=== PATIENT | male | born 1945 | race African-American/Black ===

== ENCOUNTER 2017-02-03 05:19 | Day surgery (SDC) | payer OTHER ==
[~2017-02-03] VITALS: Ht 170.2 cm; Wt 95.7 kg
--- NOTE | ~2017-02-03 | EKG ---
[address] [address] ELECTROCARDIOGRAM REPORT Name: QIANA SANTIAGO Room #: 150-2 [facility]..#: [id number] Admission: 02/03/17 Attend Phys: Dhruv Frost MD, F Discharge: Date of : 41 Report #: [id number] THIS REPORT FOR: //name// [facility] Test Date: 2017-02-03 Test Time: 06:49:47 Pat Name: QIANA SANTIAGO Department: Room: 150 2 Gender: M [employer] Supervisor: ROYCE : 1945 Requested By: Dhruv Frost Order Number: [id number] MD: Measurements Intervals [place] Rate: 83 P: 47 IN: 196 QRS: -56 QRSD: 109 T: 41 QT: 386 QTc: 454 Interpretive Statements Sinus rhythm Ventricular trigeminy Inferior infarct, old Compared to ECG 01/31/2016 09:03:34 No significant changes [email or web address] By: [id number] Epiphany Epiphany, /EPI
--- NOTE | ~2017-02-03 | O ---
[address] [address] OPERATIVE REPORT Name: JACKQIANA RAY Room #: [facility]..#: [id number] Admission: 02/03/17 Attend Phys: Dhruv Frost MD, F Discharge: 02/03/17 Date of : 41 Report #: [id number] THIS REPORT FOR: //name// CC: Roxana Frost MD DATE OF SERVICE: 02/03/2017 SURGEON: Dhruv Frost MD. ELECTRICAL LOGGING OPERATOR: Rudy Tubbs MD and DOUG Hill. PREOPERATIVE DIAGNOSES: 1. Bilateral inguinal hernias. 2. Umbilical hernia. 3. Chronic obstructive pulmonary disease. 4. Cardiomyopathy. 5. Systolic heart failure. 6. Hypertension. 7. Benign prostatic hypertrophy. 8. Hypercholesterolemia. POSTOPERATIVE DIAGNOSES: 1. Bilateral inguinal hernias. 2. Incarcerated umbilical hernia 3. Chronic obstructive pulmonary disease. 4. Cardiomyopathy. 5. Systolic heart failure. 6. Hypertension. 7. Benign prostatic hypertrophy. 8. Hypercholesterolemia. PROCEDURES: 1. Laparoscopic totally extraperitoneal repair of bilateral inguinal hernias with ProGrip mesh. 2. Primary suture repair of incarcerated umbilical hernia. ANESTHESIA: General endotracheal anesthesia and local anesthetic. ESTIMATED BLOOD LOSS: 5 mL. SPECIMEN: None. COMPLICATIONS: None appreciated. [address] [address] OPERATIVE REPORT Name: QIANA SANTIAGO Room #: DEP [facility]#: [id number] Admission: 02/03/17 Attend Phys: Dhruv Frost MD, F Discharge: 02/03/17 Date of : 41 Report #: [id number] INDICATIONS FOR PROCEDURE: This is a 71-year-old male patient who was referred by Dr. Juno Morgan with Urology service and his primary care provider is Dr. Roxana Crespo. The patient had been seen by Urology for hematuria. He complains of left groin pain and pressure, worse with abdominal straining. He denies a change in his bowel habits. CT of abdomen and pelvis showed herniation of the urinary bladder into a left inguinal hernia. The wall of urinary bladder was thickened in this area. In addition to this, a small fat-containing right inguinal hernia was present, as was a small fat containing umbilical hernia. On exam, the patient had a palpable left inguinal bulge with mild tenderness to palpation and a small bulge in the right groin that was minimally tender to palpation. An umbilical bulge was also present. No overlying erythema or edema was present in any of the areas of herniation. The patient presents now for laparoscopic repair of his inguinal hernias and repair of his umbilical hernia. OPERATIVE FINDINGS: Upon exploration of the left preperitoneal space, the patient had a moderate-sized indirect left inguinal hernia with no significant direct hernia. The urinary bladder presumably was involved with the indirect inguinal hernia. There was no evidence for a femoral hernia. In the right preperitoneal space, an indirect inguinal hernia was also identified with no evidence for a direct or femoral hernia. The landmarks of spermatic cord were clearly identified on each side. The umbilical hernia was incarcerated with omentum and preperitoneal fat. DESCRIPTION OF PROCEDURE IN DETAIL: After the benefits and risks of the procedure were explained to the patient, which include but not limited to risks of bleeding, infection, postoperative pain, postoperative expectations, informed consent was obtained. The patient was identified in the preoperative holding area. He was given IV antibiotics as documented in the chart in line with the SCIP protocol. The patient was then taken to the operating room and he was placed in the supine position. SCDs were placed on the patient's bilateral lower extremities and pneumatic compression was initiated. The patient was then given IV sedation and he was intubated without incident. A time-out was performed to identify the correct patient and procedure. Local anesthetic was infiltrated into the skin and subcutaneous tissue infraumbilically where a curvilinear incision was made with #15 blade scalpel. Dissection was carried down to the left anterior rectus sheath fascia. The fascia was opened transversely. The underlying left rectus abdominis muscle was identified. The muscle was swept laterally and the Spacemaker port was advanced into the preperitoneal space with gentle sweeping motions favoring the right side as bladder was felt to be involved with a left inguinal hernia. The outrigger was then removed and the Spacemaker balloon was gently inflated under direct visualization with a 0-degree angled laparoscope. The Spacemaker balloon was then removed and the cuff was inflated. A 10 mm 30-degree angled laparoscope was inserted after insufflating the preperitoneal space with carbon dioxide to 15 mmHg. The bladder appeared normal without evidence for laceration [address] [address] OPERATIVE REPORT Name: QIANA SANTIAGO Room #: DEP [facility] M.R.#: [id number] Admission: 02/03/17 Attend Phys: Dhruv Frost MD, F Discharge: 02/03/17 Date of : 41 Report #: [id number] or iatrogenic injury. The 5 mm ports were placed in the lower midline through transverse incisions under direct visualization after local anesthetic was infiltrated into the skin and subcutaneous tissue and appropriately sized incisions were made. Operative findings are as noted above. The patient was placed in the Trendelenburg position, rotated to his right. The left preperitoneal space was explored first as this was more problematic area. The peritoneum was dissected off of the anterior abdominal wall with appropriate traction and electrocautery. I then identified the pubic tubercle and spermatic cord with adjacent hernia sac. The spermatic cord and hernia sac were isolated and the hernia sac was then dissected off of the spermatic cord gently. The spermatic cord contents were clearly identified. The hernia sac (peritoneal lining) was then further dissected off of the spermatic cord with blunt dissection and judicious use of electrocautery with care taken to protect the spermatic cord at all times. After fully reducing the hernia sac, the ProGrip mesh was chosen for the repair. The bladder was carefully inspected and again, there was no evidence for either iatrogenic injury or laceration. The ProGrip mesh was tailored on the backtable, then rolled and placed within the preperitoneal space through the Spacemaker ports. The mesh was then unrolled in a scroll down fashion with the adherent side against the anterior abdominal wall to cover the hernia defect with good overlap and good medialization of the mesh near the midline. The mesh was rolled down with minimal gripping of the edges and complete coverage of the hernia defect with the hernia sac being completely dissected free and deep to the mesh such that the mesh directly covered the defect. The right preperitoneal space was then explored. The patient was rotated to his left with the right side up. Dissection was carried out in similar fashion. The landmarks were identified. The peritoneum was dissected off of the anterior abdominal wall. The spermatic cord and hernia sac were then isolated. This hernia sac was then further isolated off of the spermatic cord with blunt dissection and judicious use of electrocautery. After fully dissecting the sac free, the indirect inguinal hernia was identified. The ProGrip mesh was tailored on the backtable, then rolled and placed within the preperitoneal space. The mesh was unrolled with the adherent side against the anterior abdominal wall with good medialization of the mesh near the midline and good overlap of the defect. Similarly, the hernia sac was well outside of the hernia defect, deep to the mesh whereby the mesh contacted the hernia defect. Air had escaped into the peritoneal cavity. The preperitoneal space was desufflated and the ports were removed. A 5 mm 0-degree angled laparoscope was then used to enter the abdominal cavity through the infraumbilical incision. This was done in order to desufflate the abdominal cavity. The port was then removed. Dissection was carried out to identify the umbilical hernia. Blunt dissection [address] [address] OPERATIVE REPORT Name: QIANA SANTIAGO KIMBER Room #: DEP [facility]#: [id number] Admission: 02/03/17 Attend Phys: Dhruv Frost MD, F Discharge: 02/03/17 Date of : 41 Report #: [id number] and electrocautery were used to define the hernia defect. The umbilical stalk was dissected off of the area. Incarcerated omentum and preperitoneal fat were identified in the defect. The contents were reduced. There was good hemostasis. The umbilical hernia defect was then closed with a fmqtfy-wl-ejgpy 0 PDS suture with good closure of the defect. The umbilical stalk was pexy'd to the fascia with nrmziw-jf-rtymd 3-0 Vicryl suture. Attention was then turned to closure of the left anterior rectus sheath fascia. Cqokhk-yu-xgewt 0 PDS sutures times 2 were used to close the defect. The incisions were then closed with interrupted subcuticular 4-0 Monocryl sutures and Dermabond. The patient tolerated procedure well. He was awakened, extubated, and taken to recovery room in stable condition with no apparent intraoperative complications. <ELECTRONICALLY SIGNED> By: hDruv Frost MD, FACS 02/04/17 0805 [id number] Dhruv Frost MD, FACS /nt
[~2017-02-03 05:19] MED LIST: ALDACTONE25 MG PO; CARVEDILOL12.5 MG PO; FLEXERIL PO; KLOR-CON 1010 MEQ PO; LASIX 40 MG TAB40 M2 PO; LISINOPRIL20 MG PO; NORVASC5 MG PO; PLAVIX 75 MG TA75 M1 PO
[2017-02-03 07:00] VITALS: BP 144/70
[2017-02-03 07:05] LABS: CALCIUM 8.2 mg/dL (8.5-10.1); CREATININE 1.1 mg/dL (0.7-1.3); POTASSIUM 4.4 mmol/L (3.5-5.1)
[2017-02-03] MEDS ORDERED: HYDROCODONE-AP1 EAC6 PO (09:55)
[2017-02-03] MEDS ORDERED: SENNA-S TABLET1 EACH PO (09:55)
[2017-02-03 10:58] VITALS: BP 144/70
== END 2017-02-03 13:25 | disposition home or self-care (01) ==
LOC: TBA 05:19 → OR 05:19 → TBA 05:20 → OR 09:00
PROVIDERS: Surgery
DX: K40.20 Bilateral inguinal hernia, without obstruction or gangrene, not specified as recurrent (principal); K42.0 Umbilical hernia with obstruction, without gangrene; J44.9 Chronic obstructive pulmonary disease, unspecified; I42.9 Cardiomyopathy, unspecified; I50.20 Unspecified systolic (congestive) heart failure; I10 Essential (primary) hypertension; N40.0 Benign prostatic hyperplasia without lower urinary tract symptoms; E78.00 Pure hypercholesterolemia, unspecified; R06.02 Shortness of breath; J43.9 Emphysema, unspecified; F17.210 Nicotine dependence, cigarettes, uncomplicated; I73.9 Peripheral vascular disease, unspecified; Z98.890 Other specified postprocedural states
CPT/HCPCS: 50010; 50101; 50249; 50411; 50555; 50558; 50944; 51824; 52265; 52266; 54118; 54169; 56525; 56526; 62110; 62900; 70005

== ENCOUNTER 2018-11-29 09:55 | Inpatient (IN) | payer OTHER ==
[~2018-11-29] VITALS: Ht 170.2 cm; Wt 98.0 kg
[2018-11-29 09:55] VITALS: BP 117/51
[~2018-11-29 09:55] MED LIST changes: -ALDACTONE25 MG PO; +HYDROCODONE-AP1 EAC6 PO; +SENNA-S TABLET1 EACH PO; +SPIRONOLACTONE25 M1 PO
[2018-11-29 10:40] LABS: ABSOLUTE NEUTROPHILS 4.5 thou/uL (1.4-8.2); BASOPHILS 1.8 % (0.0-2.0); EOSINOPHILS 0.4 % (0.0-3.0); HEMATOCRIT 33.9 % (42.0-52.0); HEMOGLOBIN 11.5 gm/dL (14.0-18.0); LYMPHOCYTES 21.3 % (24.0-44.0); MCH 31.2 pg (26.0-34.0); MCHC 33.9 g/dL (28.0-37.0); MCV 92.1 fL (80.0-100.0); MONOCYTES 11.7 % (1.0-8.0); PLATELET COUNT 154 thou/uL (150-400); POLYS 64.8 % (36.0-66.0); RBC 3.68 mil/uL (4.50-6.00); RDW 15.2 % (10.5-14.5); WBC 6.9 thou/uL (4.0-11.0)
[2018-11-29 10:47] LABS: ANION GAP 8 mmol/L (7-16); BUN 16 mg/dL (7-18); CALCIUM 8.5 mg/dL (8.5-10.1); CHLORIDE 98 mmol/L (98-107); CO2 28 mmol/L (21-32); CREATININE 1.4 mg/dL (0.7-1.3); GLUCOSE 126 mg/dL (74-106); POTASSIUM 4.4 mmol/L (3.5-5.1); SODIUM 134 mmol/L (136-145)
[2018-11-29 10:56] LABS: ALBUMIN 3.3 g/dL (3.4-5.0); SGOT 14 U/L (15-37); SGPT 18 U/L (30-65); TOTAL BILIRUBIN 0.4 mg/dL (<0.1-1.0); TOTAL PROTEIN 6.9 g/dL (6.4-8.2); TROPONIN-I <0.06 ng/mL (<0.06)
[2018-11-29 11:51] LABS: URINE BLOOD NEGATIVE (Negative); URINE CLARITY CLEAR; URINE COLOR YELLOW; URINE GLUCOSE-RANDOM* TRACE (Negative); URINE KETONES TRACE (Negative); URINE LEUKOCYTES-REFLEX NEGATIVE (Negative); URINE NITRITE-REFLEX NEGATIVE (Negative); URINE PROTEIN (DIPSTICK) 1+ (Negative); URINE SPECIFIC GRAVITY >= 1.030 (1.005-1.035)
[2018-11-29 11:53] LABS: ICTOTEST (BILI CONFIRMATORY) Negative (Negative); URINE BILIRUBIN NEGATIVE (Negative)
[2018-11-29 12:02] LABS: HYALINE CASTS 4-10 Moderate /LPF (None Seen)
[2018-11-29 12:03] LABS: AMORPHOUS URATES Few /LPF (None Seen); BACTERIA-REFLEX 1-9 Few /HPF (None Seen); CASTS None Seen /LPF (None Seen); SQUAMOUS None Seen /LPF (0-3); URINE RBC None Seen /HPF (0-2); URINE WBC-REFLEX None Seen /HPF (0-5)
[2018-11-29] MEDS ORDERED: FLOMAX0.4 MG PO (13:47)
--- NOTE | 2018-11-29 15:01 | EKG ---
[address] [address] ELECTROCARDIOGRAM REPORT Name: QIANA SANTIAGO Room #: 355-P ADM IN M.R.#: [id number] ������������������ Admission: 11/29/18 ������������������ Attend Phys: Vicente Watkins MD Discharge: ������������������ Date of : 41 Report #: [id number] ����������������������������������������������������������������� [id number] THIS REPORT FOR: //name// [facility] ED Test Date: 2018-11-29 Test Time: 10:00:23 Pat Name: QIANA SANTIAGO Department: Room: [facility] Gender: M Major General: NEVA : 1945 Requested By: Javon Coleman Order Number: [id number] MD: Montana Burkett Measurements Intervals [place] Rate: 74 P: 18 DC: 203 QRS: -64 QRSD: 109 T: 7 QT: 392 QTc: 435 Interpretive Statements Sinus rhythm Left anterior fascicular block Compared to ECG 02/03/2017 06:49:47 Left anterior fascicular block now present Ventricular premature complex(es) no longer present Myocardial infarct finding no longer present Electronically Signed On 11-29-2018 15:01:38 [employer] by Montana Burkett [email or web address] ��������������������������������������������� <ELECTRONICALLY SIGNED> ���������������������������������������� By: Montana Burkett MD ��������������������������������������������� 11/29/18 1501 1000 1000 Montana Burkett MD /EPI
[2018-11-29 15:18] VITALS: BP 123/54
[2018-11-29 15:19] VITALS: BP 124/52
--- NOTE | 2018-11-29 18:31 | NUR ---
VSS-AFEBRILE. LUMGS CLEAR-ROOM AIR. NO REPORTED DIZZINESS OR SHORTNESS OF AIR. PAST DIAGNOSIS OF MAIA-NO REPORTED USE OF CPAP AT HOME. ICD INTERROGATED AT BEDSIDE, NO PROBLEMS FOUND WITH DEVICE. TOLERATING MEALS WITH NO REPORTED N/V. NO DIFFICULTY VOIDING. BLOOD PRESURES WITHIN NORMAL LIMITS. NO REPORTED PAIN. DISCUSSED CALLING FOR ASSISTANCE WHEN GETTING OUT OF BED, VERBALIZED UNDERSTANDING, AND SIGNED FALL AGREEMENT.
[2018-11-29 19:35] VITALS: BP 126/62
[2018-11-29] MEDS ORDERED: NEURONTIN 300300 M1 PO (19:43)
[2018-11-29 23:50] VITALS: BP 113/60
[2018-11-30 04:20] VITALS: BP 130/65
[2018-11-30 06:07] LABS: HEMATOCRIT 29.2 % (42.0-52.0); HEMOGLOBIN 9.6 gm/dL (14.0-18.0); MCH 30.2 pg (26.0-34.0); MCV 91.4 fL (80.0-100.0); PLATELET COUNT 132 thou/uL (150-400); RDW 15.1 % (10.5-14.5); WBC 3.6 thou/uL (4.0-11.0)
[2018-11-30 06:36] LABS: ANION GAP 9 mmol/L (7-16); BUN 17 mg/dL (7-18); CALCIUM 7.9 mg/dL (8.5-10.1); CHLORIDE 106 mmol/L (98-107); CO2 24 mmol/L (21-32); CREATININE 0.9 mg/dL (0.7-1.3); GLUCOSE 100 mg/dL (74-106); MAGNESIUM 1.9 mg/dL (1.8-2.4); POTASSIUM 4.3 mmol/L (3.5-5.1); SODIUM 139 mmol/L (136-145); TROPONIN-I <0.06 ng/mL (<0.06)
[2018-11-30 06:39] LABS: CHOLESTEROL 103 mg/dL (<200); HDL CHOLESTEROL 32 mg/dL (>40); LDL CHOLESTEROL 65 mg/dL (<100); TC:HDL 3.2 Ratio (Not establshd); TRIGLYCERIDE 34 mg/dL (<150); VLDL 7 mg/dL (<40)
[2018-11-30 06:40] LABS: SERUM ASSESSMENT Clear
--- NOTE | 2018-11-30 07:42 | NUR ---
PATIENT IS PROGRESSING IN HIS CARE PLAN. VITAL SIGNS STABLE WITH PATIENT HAVING NO COMPLAINTS OF PAIN OR NAUSEA. FULLY ORIENTED, PATIENT IS ABLE TO CALL APPROPRIATELY FOR REQUESTS. PATIENT ASSESSED FREQUENTLY FOR CHEST PAIN WITH NONE REPORTED. UP WITH ASSISTANCE MULTIPLE TIMES WITHOUT INCIDENT. PATIENT IS A HIGH FALL RISK DUE TO EPISODES OF SYNCOPE REPORTED. NPO FROM MIDNIGHT ON IN ANTICIPATION OF STRESS TEST TODAY. AT SHIFT CHANGE PATIENT STATES THAT HE DOES NOT WANT TEST DUE TO TAKING ONE AT [facility] IN [place]. CONTINUE PLAN OF CARE.
[2018-11-30 07:44] VITALS: BP 143/70
[2018-11-30 08:34] LABS: ABSOLUTE NEUTROPHILS 1.3 thou/uL (1.4-8.2); PLATELET ESTIMATE NORMAL
[2018-11-30 15:09] VITALS: BP 143/70
--- NOTE | 2018-11-30 16:10 | NUR ---
Assumed care of Pt at 0700. Pt AOx4 in no acute distress. States that he does not want stress test this AM because he had one done 3-4 months ago at [facility]. Medical records request form sent to [facility] [place]. CV ok with patient d/c today. anticipating d/c this afternoon. will cont to monitor. asymptomatic throughout shift. calls out appropriately. vitals stable. up w/ steady gait. pt progressing toward poc goals.
== END 2018-11-30 16:09 | disposition home or self-care (01) | DRG 312 ==
LOC: ER 09:55 → 3W 13:55 → EROBS 13:55 → 3W 14:59 → ENTRNSPT 11-30 16:01 → 3W 11-30 16:09
PROVIDERS: Nurse Practitioner; ADMIT Hospitalist
PROC: 4B02XTZ Measurement of Cardiac Defibrillator, External Approach (ICD-10-PCS; principal; 2018-11-29)
DX: R55 Syncope and collapse (principal); N17.9 Acute kidney failure, unspecified; I42.9 Cardiomyopathy, unspecified; I50.22 Chronic systolic (congestive) heart failure; I73.9 Peripheral vascular disease, unspecified; N40.0 Benign prostatic hyperplasia without lower urinary tract symptoms; I25.10 Atherosclerotic heart disease of native coronary artery without angina pectoris; G47.33 Obstructive sleep apnea (adult) (pediatric); I11.0 Hypertensive heart disease with heart failure; F17.210 Nicotine dependence, cigarettes, uncomplicated; E78.5 Hyperlipidemia, unspecified; Z95.820 Peripheral vascular angioplasty status with implants and grafts; Z98.42 Cataract extraction status, left eye; Z98.41 Cataract extraction status, right eye; Z71.6 Tobacco abuse counseling; Z79.899 Other long term (current) drug therapy
CPT/HCPCS: 10879